=== PATIENT | female | born 1960 | race Caucasian/White ===

== ENCOUNTER 2019-03-26 21:55 | Inpatient (IN) | payer OTHER ==
[~2019-03-26] VITALS: Ht 167.6 cm; Wt 71.7 kg
[~2019-03-26 21:55] MED LIST: ALBUTEROL2.5 MG/31 INH; AZITHROMYCIN 2250 MG PO; ULTRAM 50MG TAB50 MG PO
[2019-03-26 22:07] VITALS: BP 175/112
[2019-03-26 22:33] LABS: HEMATOCRIT 39.1 % (37.0-47.0); HEMOGLOBIN 13.4 gm/dL (12.0-15.0); MCH 32.2 pg (26.0-34.0); MCHC 34.3 g/dL (28.0-37.0); MCV 93.9 fL (80.0-100.0); MPV 7.3 fl. (7.2-11.1); NUCLEATED RBCS 0 /100WBC; PLATELET COUNT* 250 thou/uL (150-400); RBC 4.16 mil/uL (4.20-5.00); RDW-CV 12.6 % (10.5-14.5); WBC 9.8 thou/uL (4.0-11.0)
[2019-03-26 22:38] LABS: CREATININE 0.8 mg/dL (0.6-1.3); POTASSIUM 3.2 mmol/L (3.5-5.1)
[2019-03-26 22:47] LABS: ALBUMIN 4.2 g/dL (3.4-5.0); TOTAL BILIRUBIN 0.5 mg/dL (<0.1-1.0); TOTAL PROTEIN 7.6 g/dL (6.4-8.2); TROPONIN-I LEVEL 0.13 ng/mL (<0.06)
[2019-03-26 22:51] LABS: ABSOLUTE LYMPHOCYTES 1.5 thou/uL (0.8-5.3); ABSOLUTE MONOCYTES 0.4 thou/uL (0.0-1.2); ABSOLUTE NEUTROPHILS 7.9 thou/uL (1.6-8.1); PLATELET ESTIMATE ADEQUATE
[2019-03-27] VITALS (19 sets, daily range): BP systolic 100–173; BP diastolic 56–97
[2019-03-27 09:36] LABS: CHOLESTEROL 247 mg/dL (<200); HDL CHOLESTEROL 80 mg/dL (>40); LDL CHOLESTEROL 160 mg/dL (<100); TC:HDL 3.1 Ratio (Not establshd); TRIGLYCERIDE 36 mg/dL (<150); VLDL 7 mg/dL (<40)
[2019-03-27 09:37] LABS: SERUM ASSESSMENT Clear
[2019-03-27 11:20] LABS: CALCIUM 9.1 mg/dL (8.5-10.1); CREATININE 0.8 mg/dL (0.6-1.3); MAGNESIUM 1.8 mg/dL (1.8-2.4); POTASSIUM 3.4 mmol/L (3.5-5.1)
--- NOTE | 2019-03-27 12:08 | EKG ---
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: [facility] : 1960 Requested By: Zia Siegel Order Number: [id number] MD: Daron Lang Measurements Intervals [place] Rate: 59 P: 62 LA: 56 QRS: 29 QRSD: 131 T: 55 QT: 484 QTc: 480 Interpretive Statements Sinus rhythm Short LA interval Nonspecific intraventricular conduction delay Compared to ECG 08/05/2013 19:55:43 Short LA interval now present Intraventricular conduction delay now present Electronically Signed On 03-27-2019 12:08:08 CDT by Daron Lang [email or web address] <ELECTRONICALLY SIGNED> By: Daron Lang MD, [facility] 03/27/19 1208 02 02 Daron Lang MD, [facility] /EPI
--- NOTE | 2019-03-27 14:44 | CARD ---
[address] [address] CARDIAC CATH REPORT Name: NETO RASHEED Room: [address] IN ..#: [id number] Admission: 03/26/19 Attend Phys: Refugio Alston MD Discharge: Date of : 58 Report #: [id number] THIS REPORT FOR: //name// APPROVED REPORT Study performed: 03/27/2019 13:29:13 Patient Details Patient Status: In-Patient Room #: Event Personnel Dr. Lang Procedures Performed Left heart catheterization and selective coronary arteriography Indication Chest pain, Increased troponin I Risk Factors Family History Admission/Lab Medications/Medications given during procedure Heparin Unfract. Procedure Narrative The patient was brought electively to the Cardiac Catheterization Laboratory and was prepped and draped in a sterile manner. The right wrist was infiltrated with 2% Lidocaine subcutaneous anesthesia. The right coronary system was accessed and visualized with a Diagnostic catheter. The left coronary system was accessed and visualized with a Diagnostic catheter. The left ventricle was accessed and visualized with a Diagnostic catheter. Left ventricular/Aortic Valve gradient assessed via catheter pullback. Diagnostic Cath Left Main 0% narrowing LAD Prominent vessel with 20% mid vessel narrowing Circumflex Prominent though nondominant vessel with 0% narrowing Right Coronary Large dominant vessel with 0% narrowing Left Ventriculography [address] [place] [address] CARDIAC CATH REPORT Name: JOSEFINAEMILIANETO Room: [address] IN M.R.#: [id number] Admission: 03/26/19 Attend Phys: Refugio Alston MD Discharge: Date of : 58 Report #: [id number] Left Ventriculography was not performed. Hemodynamics The aortic pressure is 110/70 mmHg with a mean of 82 mmHg. The left ventricular end diastolic pressure is 3 mmHg. Conclusion #1 minimal coronary artery disease characterized by the following: A 20% mid LAD narrowing B normal left main circumflex and right coronary arteries #2 normal left-sided hemodynamic study Recommendations Cardiac Risk Reduction Program Diagnostic Cath Approved by: Daron Lang MD Date/Time: 03/27/2019 14:42:28 <ELECTRONICALLY SIGNED> By: Daron Lang MD, FACC 03/27/19 1443 1443 [id number] Lang MD, FAC /INF
[2019-03-28] VITALS: BP 113/55
[2019-03-28 04:00] VITALS: BP 133/71
[2019-03-28 04:18] LABS: HEMATOCRIT 40.2 % (37.0-47.0); HEMOGLOBIN 13.9 gm/dL (12.0-15.0); MCH 32.7 pg (26.0-34.0); MCHC 34.5 g/dL (28.0-37.0); MCV 94.8 fL (80.0-100.0); MPV 7.8 fl. (7.2-11.1); RBC 4.24 mil/uL (4.20-5.00); RDW-CV 12.6 % (10.5-14.5); WBC 11.7 thou/uL (4.0-11.0)
[2019-03-28 04:23] LABS: CALCIUM 9.3 mg/dL (8.5-10.1); CREATININE 0.8 mg/dL (0.6-1.3); MAGNESIUM 2.3 mg/dL (1.8-2.4)
[2019-03-28 04:25] LABS: POTASSIUM 4.6 mmol/L (3.5-5.1)
[2019-03-28 08:00] VITALS: BP 162/91
[2019-03-28 11:57] VITALS: BP 135/78
--- NOTE | 2019-03-28 14:13 | 2DMMODE ---
[place] [address] 2 D/M-MODE ECHOCARDIOGRAM Name: NETO RASHEED Room: [address] IN [facility]#: [id number] Admission: 03/26/19 Attend Phys: Refugio Alston, Discharge: Date of : 58 Date of Service: 03/28/19 1413 Report #: [id number] THIS REPORT FOR: //name// APPROVED REPORT Study performed: 03/28/2019 11:14:46 EXAM: Comprehensive 2D, Doppler, and color-flow Echocardiogram Patient Location: In-Patient Room #: [facility] Status: routine BSA: 1.74 HR: 61 bpm BP: 133/71 mmHg Rhythm: NSR Other Information Study Quality: Good Indications Chest Pain 2D Dimensions IVSd: 9.95 (7-11mm) LVOT Diam: 19.90 (18-24mm) LVDd: 47.08 mm PWd: 8.84 (7-11mm) Ascending Ao: 33.84 (22-36mm) LVDs: 30.30 (25-40mm) Aortic Root: 34.33 mm Volumes Left Atrial Volume (Systole) LA ESV Index: 19.00 mL/m2 Aortic Valve AoV Peak Aurelio.: 1.18 m/s AO Peak Gr.: 5.55 mmHg LVOT Max P.24 mmHg AO Mean Gr.: 2.57 mmHg LVOT Mean P.41 mmHg LVOT Max V: 0.90 m/s AO V2 VTI: 21.09 cm LVOT Mean V: 0.53 m/s MYLA (VTI): 2.74 cm2 LVOT V1 VTI: 18.56 cm Mitral Valve E/A Ratio: 1.21 MV Decel. Time: 202.31 ms MV E Max Aurelio.: 0.85 m/[place] [address] 2 D/M-MODE ECHOCARDIOGRAM Name: ENTO RASHEED Room: [address] IN [facility]#: [id number] Admission: 03/26/19 Attend Phys: Refugio Alston, Discharge: Date of : 58 Date of Service: 03/28/19 1413 Report #: [id number] MV PHT: 58.67 ms MVA (PHT): 3.75 cm2 TDI E/Lateral E': 5.31 E/Medial E': 6.07 Medial E' Aurelio.: 0.14 m/s Lateral E' Aurelio.: 0.16 m/s Pulmonary Valve PV Peak Aurelio.: 0.98 m/s PV Peak Gr.: 3.87 mmHg Tricuspid Valve RAP Estimate: 5.00 mmHg TR Peak Gr.: 16.47 mmHg RVSP: 21.00 mmHg PA Pressure: 21.00 mmHg Left Ventricle The left ventricle is normal size. There is normal LV segmental wall motion. There is normal left ventricular wall thickness. Left ventricular systolic function is normal. The left ventricular ejection fraction is within the normal range. LVEF is 55-60%. The left ventricular diastolic function is normal. Right Ventricle The right ventricle is normal size. The right ventricular systolic function is normal. Atria The left atrium size is normal. The right atrium size is normal. Aortic Valve The aortic valve is normal in structure. No aortic regurgitation is present. There is no aortic valvular stenosis. Mitral Valve The mitral valve is normal in structure. Mild mitral regurgitation. No evidence of mitral valve stenosis. Tricuspid Valve The tricuspid valve is normal in structure. Mild tricuspid regurgitation. No pulmonary hypertension. Pulmonic Valve The pulmonary valve is normal in structure. Mild [place] [address] 2 D/M-MODE ECHOCARDIOGRAM Name: JOSEFINAEMILIANETO Room: [address]#: [id number] Admission: 03/26/19 Attend Phys: Refugio Alston, Discharge: Date of : 58 Date of Service: 03/28/19 1413 Report #: [id number] Great Vessels The aortic root is normal in size. IVC is normal in size and collapses >50% with inspiration. Pericardium There is no pericardial effusion. <Conclusion> LVEF is 55-60%. Mild mitral regurgitation. <ELECTRONICALLY SIGNED> By: Beny Shafer MD, [facility] 03/28/19 1413 141 141 Beny Shafer MD, FAC /INF
[2019-03-28 16:37] VITALS: BP 114/72
[2019-03-28 20:00] VITALS: BP 134/63
[2019-03-29] VITALS: BP 115/68
[2019-03-29 04:00] VITALS: BP 107/66
[2019-03-29 07:51] VITALS: BP 116/71
[2019-03-29 10:17] VITALS: BP 116/71
[2019-03-29 12:04] VITALS: BP 109/70
[2019-03-29 15:40] VITALS: BP 108/66
[2019-03-29 16:15] LABS: ALBUMIN 3.7 g/dL (3.4-5.0); DIRECT BILIRUBIN 0.1 mg/dL (<0.1-0.3); TOTAL BILIRUBIN 0.7 mg/dL (<0.1-1.0); TOTAL PROTEIN 7.2 g/dL (6.4-8.2); TROPONIN-I LEVEL 0.45 ng/mL (<0.06)
[2019-03-30] VITALS: BP 102/60
[2019-03-30 04:00] VITALS: BP 126/68
[2019-03-30 04:14] LABS: ABSOLUTE EOSINOPHILS 0.3 thou/uL (0.0-0.7); ABSOLUTE LYMPHOCYTES 2.2 thou/uL (0.8-5.3); ABSOLUTE MONOCYTES 0.7 thou/uL (0.0-1.2); ABSOLUTE NEUTROPHILS 3.9 thou/uL (1.6-8.1); BASOPHILS 0.5 %; EOSINOPHILS 4.3 %; HEMATOCRIT 39.1 % (37.0-47.0); HEMOGLOBIN 13.3 gm/dL (12.0-15.0); LYMPHOCYTES 31.4 %; MCH 32.4 pg (26.0-34.0); MCV 95.5 fL (80.0-100.0); MONOCYTES 9.5 %; NUCLEATED RBCS 0 /100WBC; PLATELET COUNT* 208 thou/uL (150-400); POLYS 54.3 %; RBC 4.09 mil/uL (4.20-5.00); RDW-CV 12.4 % (10.5-14.5); WBC 7.1 thou/uL (4.0-11.0)
[2019-03-30 04:30] LABS: ALBUMIN 3.2 g/dL (3.4-5.0); CALCIUM 8.9 mg/dL (8.5-10.1); CREATININE 0.9 mg/dL (0.6-1.3); POTASSIUM 3.5 mmol/L (3.5-5.1); TOTAL BILIRUBIN 0.5 mg/dL (<0.1-1.0); TOTAL PROTEIN 6.6 g/dL (6.4-8.2)
[2019-03-30 07:32] VITALS: BP 119/61
[2019-03-30 11:30] VITALS: BP 133/65
[2019-03-30 16:00] VITALS: BP 107/54
[2019-03-30 20:00] VITALS: BP 115/65
[2019-03-31] VITALS: BP 110/60
[2019-03-31 04:00] VITALS: BP 144/73
[2019-03-31 07:30] VITALS: BP 112/50
[2019-03-31 12:32] VITALS: BP 128/55
[2019-03-31 16:11] VITALS: BP 122/71
[2019-03-31 20:20] VITALS: BP 99/53
[2019-04-01] VITALS: BP 127/78
[2019-04-01 04:00] VITALS: BP 116/72
[2019-04-01 07:00] VITALS: BP 105/63
[2019-04-01] MEDS ORDERED: FISH OIL 1,001000 M2 PO (11:03)
[2019-04-01] MEDS ORDERED: BENTYL 20 MG TA20 M1 PO (11:03)
[2019-04-01] MEDS ORDERED: ASPIR 8181 MG PO (11:03)
[2019-04-01] MEDS ORDERED: AMITRIPTYLINE H25 M2 PO (11:03)
[2019-04-01] MEDS ORDERED: OMEPRAZOLE40 MG PO (11:04)
[2019-04-01 11:52] VITALS: BP 112/76
[2019-04-01 12:10] VITALS: BP 112/76
== END 2019-04-01 12:45 | disposition home or self-care (01) | DRG 392 ==
LOC: M.ERS 21:55 → M.TBA-ER 23:00 → M.2W 23:00
PROVIDERS: Emergency Medicine Emergency Medical Services; Internal Medicine Gastroenterology; Nurse Practitioner Adult Health; Registered Nurse; ADMIT Internal Medicine
PROC: B2111ZZ Fluoroscopy of Multiple Coronary Arteries using Low Osmolar Contrast (ICD-10-PCS; principal; 2019-03-27)
PROC: 4A023N7 Measurement of Cardiac Sampling and Pressure, Left Heart, Percutaneous Approach (ICD-10-PCS; principal; 2019-03-27)
PROC: 0D758ZZ Dilation of Esophagus, Via Natural or Artificial Opening Endoscopic (ICD-10-PCS; 2019-03-29)
DX: K58.9 Irritable bowel syndrome, unspecified (principal); K21.9 Gastro-esophageal reflux disease without esophagitis; I25.10 Atherosclerotic heart disease of native coronary artery without angina pectoris; K44.9 Diaphragmatic hernia without obstruction or gangrene; I10 Essential (primary) hypertension; R79.89 Other specified abnormal findings of blood chemistry; I34.0 Nonrheumatic mitral (valve) insufficiency; G43.D0 Abdominal migraine, not intractable; K76.9 Liver disease, unspecified; K31.89 Other diseases of stomach and duodenum; E78.5 Hyperlipidemia, unspecified; Z87.891 Personal history of nicotine dependence; I25.2 Old myocardial infarction; Z88.5 Allergy status to narcotic agent; Z91.018 Allergy to other foods; Z82.49 Family history of ischemic heart disease and other diseases of the circulatory system